=== PATIENT | female | born 1975 | race Caucasian/White ===

== ENCOUNTER → 2020-04-20 | Day surgery (SDC) | payer BC, OTHER ==
[~2020-04-20] VITALS: Ht 165.1 cm; Wt 123.4 kg
[~2020-04-20] MED LIST: BUPIVACAINE HCL 0.5% INJ 30 ML VIAL INJ ONE; CEFAZOLIN SOD 1 GM/NS 50ML 100 ML IV ONE; DEXAMETHASONE SOD PHOS INJ 4 MG/ML VIAL ONE; FENTANYL CITRATE/PF 100MCG/2 ML INJ ONE; HYDROMORPHONE 1MG/1ML INJ ONE; KETOROLAC TROMETHAMINE 30 MG/ML VIAL ONE; LIDOCAINE HCL 2% LOCAL INJ 5 ML SDV VIAL INJ ONE; LOSARTAN POTAS100 MG PO; METOCLOPRAMIDE HCL 10 MG/2ML VIAL ONE; MIDAZOLAM HCL 2 MG/2 ML VIAL ONE; NEOSTIGMINE 1 MG/ML 10ML VIAL ONE; ONDANSETRON HCL INJ 2MG/ML 2ML 2 MG/ML VIAL ONE; PROPOFOL IV EMULSION 10 MG/ML 20 ML VIAL ONE; SERTRALINE HCL100 MG PO; SEVOFLURANE INHAL SOLN 250 ML PEN BTL ONE
[2020-04-20 12:05] VITALS: BP 110/71
--- NOTE | 2020-04-20 12:18 | Operative Report ---
DATE OF PROCEDURE: 04/20/2020 SURGEON: Cherelle Dale DPM [employer]: None. PREOPERATIVE DIAGNOSES: 1. Hallux rigidus. 2. Hallux interphalangeals. 3. History of sesamoiditis. POSTOPERATIVE DIAGNOSES: 1. Hallux rigidus. 2. Hallux interphalangeals. 3. History of sesamoiditis. PROCEDURE: Double decompression osteotomy, left foot. PATHOLOGY: None. HEMOSTASIS: Pneumatic ankle tourniquet. ESTIMATED BLOOD LOSS: Less than 10 mL. ANESTHESIA: General anesthetic with a local block consisting of 10 mL. COMPLICATIONS: None. CONDITION: Stable. PROCEDURE IN DETAIL: Under mild sedation, the patient was brought to the operating room, placed on the operating table in supine position. Following IV sedation, anesthesia was obtained with a general anesthetic. At this point, the left foot scrubbed, prepped, and draped in the usual aseptic manner. It was then lowered to the table. Attention was then turned to the dorsal aspect of the left foot, where a linear incision was made overlying the first metatarsophalangeal joint. The incision was deepened via sharp and blunt dissection taking care to retract or cauterize neurovascular structures as necessary down to the level of the metatarsal. An inverted-L capsulotomy was then performed. The metatarsal head was then visualized. It was noted to be DJD medially and dorsally utilizing oscillating saw, it was then removed. Most of the articular cartilage was intact. A 60 degrees decompression osteotomy was then performed. Moving the head of the metatarsal to more lateral position to help decrease the intermetatarsal angle and decrease the compression to the area. The osteotomy was then fixated with two screws 2 mm x 18 from [employer]. There was noted to be adequate compression clinically with the use of intraoperative fluoroscopy. Attention was directed to the phalanx, where an Almas osteotomy was then performed. It was then fixated utilizing sury. There was noted to be adequate alignment and compression clinically with the use of intraoperative fluoroscopy. The area was then flushed with copious amount of normal sterile saline solution. The area was then closed, closing the deepest layer with 2-0 Vicryl and 3-0 Vicryl and then a human allograft was inserted to prevent adhesions and neuritis to the area and decrease the scar tissue and then 4-0 nylon was then used to close. A clean dressing was applied consisting of Adaptic ointment, 4x4s, Kerlix, and an Jorge bandage. The tourniquet was deflated. There was noted to be hyperemic response to all digits. The patient tolerated the procedure and anesthesia well without complication, was transported to recovery room with vital signs stable and vascular status intact to both feet. The patient will be discharge home when she meets criteria. She was given instructions to be nonweightbearing to ice and elevate the foot while at rest. Follow up with me in the office and to call the office if any questions, concerns, or new problems arise. RYDER Chow/GABRIELLA /[id number]
== END | disposition home or self-care (01) ==
LOC: OR 06:23
PROVIDERS: ATTEND Podiatrist Foot & Ankle Surgery
DX: M20.22 Hallux rigidus, left foot (principal); M20.5X2 Other deformities of toe(s) (acquired), left foot; I10 Essential (primary) hypertension; E66.01 Morbid (severe) obesity due to excess calories; Z91.040 Latex allergy status; Z01.810 Encounter for preprocedural cardiovascular examination; Z01.812 Encounter for preprocedural laboratory examination; Z11.59 Encounter for screening for other viral diseases; Z87.891 Personal history of nicotine dependence
CPT/HCPCS: 28299; 76000; 81025; 93005; C1713 ×2; J0690; J1100; J1170; J1885; J2001; J2250; J2405; J2704; J2710; J2765; J3010; Q4150; U0002